=== PATIENT | male | born 1955 | race Caucasian/White ===

== ENCOUNTER 2018-08-26 11:20 | Inpatient (IN) | payer MEDICAID, MEDICARE, OTHER ==
[~2018-08-26] VITALS: Ht 167.6 cm; Wt 74.8 kg
[2018-08-26] MEDS ORDERED: ONDANSETRON HCL 4MG/2ML INJ IV STA (11:56)
[2018-08-26 12:29] LABS: BASOPHILS % 0.1 % (0.0-2.0); HEMATOCRIT. 41.8 % (42.0-52.0); HEMOGLOBIN. 14.7 g/dL (14.0-18.0); MEAN CORPUSCULAR HEMOGLOBIN 32.5 pg (28.0-32.0); MEAN CORPUSCULAR VOLUME 92.7 fL (80.0-94.0); MEAN PLATELET VOLUME 8.4 fl (7.4-10.4); MONOCYTES % 5.8 % (2.0-8.0); NEUTROPHILS % 86.1 % (40.0-76.0); PLATELET 136 x1000/uL (130-400); RED BLOOD CELL COUNT 4.51 mill/uL (4.7-6.1); RED CELL DISTRIBUTION WIDTH 13.7 % (11.6-14.6)
[2018-08-26 12:34] LABS: CHLORIDE 81 mEq/L (98-107)
[2018-08-26 13:06] LABS: CLARITY URINE CLEAR (CLEAR); COLOR URINE YELLOW (YELLOW); KETONES URINE 3+ (NEGATIVE); LEUKOCYTE ESTERASE URINE NEGATIVE (NEGATIVE); NITRITE URINE NEGATIVE (NEGATIVE); OCCULT BLOOD URINE 1+ (NEGATIVE); PROTEIN URINE 2+ (NEGATIVE); SPECIFIC GRAVITY URINE 1.025 (1.005-1.030); UROBILINOGEN URINE 0.2 E.U./dL (0.2-1.0)
[2018-08-26] MEDS ORDERED: ONDANSETRON HCL 4MG/2ML INJ IV ONE (14:15)
[2018-08-26] MEDS ORDERED: MAGNESIUM/ALUMINUM HYDROXIDE/SIMETHICONE 30ML UDC PO ONE (14:15)
[2018-08-26] MEDS ORDERED: IOHEXOL-300 100 ML BOTTLE ONE (14:42)
[2018-08-26] MEDS ORDERED: SODIUM CHLORIDE 0.9% 1,000 ML IV ONE (15:53)
[2018-08-26] MEDS ORDERED: LORAZEPAM 2MG/ML CPJ IV ONE (16:00)
[2018-08-26] MEDS ORDERED: DIPHENHYDRAMINE 50MG/ML VIAL IV PRN (21:00)
[2018-08-26] MEDS ORDERED: DOCUSATE SODIUM 100MG CAPSULE PO PRN (21:00)
[2018-08-26] MEDS ORDERED: IPRATROPIUM/ALBUTEROL 0.5-3(2.5)MG/3ML NEB INH PRN (21:00)
[2018-08-26] MEDS ORDERED: DEXTROSE 50% WATER 50ML SYRINGE IV PRN (21:00)
[2018-08-26] MEDS ORDERED: NA PHOS,M-B/NA PHOS,DI-BA ENEMA 118ML PR PRN (21:00)
[2018-08-26] MEDS ORDERED: ONDANSETRON HCL 4MG/2ML INJ IV PRN (21:00)
[2018-08-26] MEDS ORDERED: HYDROCODONE/ACETAMINOPHEN 10/325MG TABLET PO PRN (21:00)
[2018-08-26] MEDS ORDERED: HYDROMORPHONE HCL/PF 2MG/ML CPJ IV PRN (21:00)
[2018-08-26] MEDS ORDERED: ACETAMINOPHEN 325MG TABLET PO PRN (21:00)
[2018-08-26] MEDS ORDERED: GUAIFENESIN 200MG/10ML SUGAR FREE UDC PO PRN (21:00)
[2018-08-26 21:30] VITALS: BP 187/99
[2018-08-27] VITALS (12 sets, daily range): BP systolic 137–192; BP diastolic 71–105
[2018-08-27] MEDS ORDERED: MVI, ADULT NO.1 10 ML, FOLIC ACID 1 MG, THIAMINE HCL 100 MG in SODIUM CHLORIDE 0.9% 1,0... IV NR ×4
[2018-08-27 00:50] LABS: CREATINE KINASE 124 IU/L (39-308)
[2018-08-27 00:52] LABS: CREATINE KINASE MB FRACTION 2.4 ng/mL (0.5-3.6)
[2018-08-27] MEDS: CLONIDINE 0.1MG TABLET PO PRN (01:51)
[2018-08-27] MEDS: LORAZEPAM 2MG/ML CPJ IV PRN (02:49)
[2018-08-27] MEDS: MAGNESIUM/ALUMINUM HYDROXIDE/SIMETHICONE 30ML UDC PO PRN ×2 (03:05→18:32)
[2018-08-27] MEDS: SODIUM CHLORIDE 0.9% INJ 3ML FLUSH IVF SCH ×3 (05:02→21:38)
[2018-08-27 05:41] LABS: CHLORIDE 97 mEq/L (98-107)
[2018-08-27 05:52] LABS: CREATINE KINASE 96 IU/L (39-308)
[2018-08-27 06:00] LABS: CREATINE KINASE MB FRACTION 1.9 ng/mL (0.5-3.6)
[2018-08-27 06:25] LABS: BASOPHILS % 0.2 % (0.0-2.0); EOSINOPHILS % 0.1 % (0.0-5.0); HEMATOCRIT. 37.2 % (42.0-52.0); LYMPHOCYTES % 18.7 % (20.0-50.0); MEAN CORPUSCULAR HEMOGLOBIN 32.6 pg (28.0-32.0); MEAN CORPUSCULAR VOLUME 93.2 fL (80.0-94.0); MEAN PLATELET VOLUME 9.1 fl (7.4-10.4); MONOCYTES % 14.3 % (2.0-8.0); NEUTROPHILS % 66.7 % (40.0-76.0); PLATELET 124 x1000/uL (130-400); RED BLOOD CELL COUNT 3.99 mill/uL (4.7-6.1); RED CELL DISTRIBUTION WIDTH 13.8 % (11.6-14.6)
[2018-08-27] MEDS: BLOOD SUGAR DIAGNOSTIC STRIP TEST SCH ×4 (07:30→21:37)
[2018-08-27] MEDS ORDERED: PNEUMOCOCCAL 23-VAL P-SAC VAC 0.5 ML IM ONE (08:00)
[2018-08-27] MEDS ORDERED: FAMOTIDINE 20MG/2ML VIAL IV SCH (09:00)
[2018-08-27] MEDS: SODIUM CHLORIDE 0.45% 1,000 ML IV SCH ×2 (09:07→21:57)
[2018-08-27] MEDS: INSULIN LISPRO 100 UNITS/ML SUBCUT SCH ×4 (09:19→21:50)
[2018-08-27] MEDS: HYDRALAZINE 20MG/ML VIAL IV PRN ×2 (10:59→18:35)
[2018-08-27] MEDS: OMEPRAZOLE 20MG CAPSULE EXTENDED RELEASE PO SCH ×2 (12:26→21:27)
[2018-08-27 13:31] LABS: TOTAL IRON BINDING CAPACITY 201 ug/dL (250-450)
[2018-08-27 13:54] LABS: FERRITIN 513 ng/mL (22-322)
[2018-08-27 14:05] LABS: VITAMIN B12 SERUM 637 pg/mL (211-911)
[2018-08-27 14:15] LABS: FOLIC ACID (FOLATE) SERUM > 20.00 ng/mL (>5.38)
[2018-08-28] VITALS (11 sets, daily range): BP systolic 138–174; BP diastolic 67–97
[2018-08-28] MEDS: LORAZEPAM 2MG/ML CPJ IV PRN ×2 (05:15→22:33)
[2018-08-28] MEDS: SODIUM CHLORIDE 0.9% INJ 3ML FLUSH IVF SCH ×3 (05:23→23:35)
[2018-08-28] MEDS: OMEPRAZOLE 20MG CAPSULE EXTENDED RELEASE PO SCH ×2 (06:54→21:45)
[2018-08-28] MEDS: BLOOD SUGAR DIAGNOSTIC STRIP TEST SCH ×4 (07:45→21:00)
[2018-08-28] MEDS: INSULIN LISPRO 100 UNITS/ML SUBCUT SCH ×4 (08:56→22:34)
[2018-08-28 10:25] LABS: HEMATOCRIT 42.3 % (42.0-52.0); HEMOGLOBIN 14.8 g/dL (14.0-18.0); MEAN CORPUSCULAR HEMOGLOBIN 32.7 pg (28.0-32.0); MEAN CORPUSCULAR VOLUME 93.8 fL (80.0-94.0); PLATELET 126 x1000/uL (130-400); RED BLOOD CELL COUNT 4.51 mill/uL (4.7-6.1); RED CELL DISTRIBUTION WIDTH 13.7 % (11.6-14.6)
[2018-08-28 10:34] LABS: CHLORIDE 98 mEq/L (98-107)
[2018-08-28] MEDS: SODIUM CHLORIDE 0.45% 1,000 ML IV SCH (11:16)
[2018-08-28] MEDS: HYDRALAZINE 20MG/ML VIAL IV PRN (13:32)
[2018-08-28] MEDS ORDERED: POTASSIUM CHLORIDE 20MEQ TABLET SR PO NR (19:00)
[2018-08-29] VITALS (9 sets, daily range): BP systolic 107–206; BP diastolic 55–113
[2018-08-29] MEDS: SODIUM CHLORIDE 0.45% 1,000 ML IV SCH ×2 (03:08→13:22)
[2018-08-29] MEDS: OMEPRAZOLE 20MG CAPSULE EXTENDED RELEASE PO SCH (06:03)
[2018-08-29] MEDS: SODIUM CHLORIDE 0.9% INJ 3ML FLUSH IVF SCH ×2 (06:03→13:22)
[2018-08-29 06:27] LABS: BASOPHILS % 0.1 % (0.0-2.0); EOSINOPHILS % 1.5 % (0.0-5.0); HEMATOCRIT. 37.9 % (42.0-52.0); HEMOGLOBIN. 13.2 g/dL (14.0-18.0); LYMPHOCYTES % 30.8 % (20.0-50.0); MEAN CORPUSCULAR HEMOGLOBIN 32.8 pg (28.0-32.0); MEAN PLATELET VOLUME 8.7 fl (7.4-10.4); MONOCYTES % 13.3 % (2.0-8.0); NEUTROPHILS % 54.3 % (40.0-76.0); PLATELET 118 x1000/uL (130-400); RED BLOOD CELL COUNT 4.03 mill/uL (4.7-6.1)
[2018-08-29 06:29] LABS: CHLORIDE 102 mEq/L (98-107)
[2018-08-29] MEDS: BLOOD SUGAR DIAGNOSTIC STRIP TEST SCH ×2 (08:13→12:33)
[2018-08-29] MEDS: INSULIN LISPRO 100 UNITS/ML SUBCUT SCH ×2 (08:21→13:22)
[2018-08-29] MEDS: CLONIDINE 0.1MG TABLET PO PRN (12:00)
[2018-08-29] MEDS: HYDRALAZINE 20MG/ML VIAL IV PRN (12:37)
[2018-08-29] MEDS: LORAZEPAM 2MG/ML CPJ IV PRN (16:17)
== END 2018-08-29 16:45 | disposition home or self-care (01) | DRG 241 ==
LOC: ER 11:20 → EDBEDREQ 13:42 → 5EST 17:00 → EDBEDREQSVC 17:03 → EDBEDREQ 17:03 → ENRESERV 20:02
PROVIDERS: ADMIT Internal Medicine; ATTEND Internal Medicine
DX: K29.71 Gastritis, unspecified, with bleeding (principal); E87.1 Hypo-osmolality and hyponatremia; E11.9 Type 2 diabetes mellitus without complications; I10 Essential (primary) hypertension; K21.9 Gastro-esophageal reflux disease without esophagitis; K80.20 Calculus of gallbladder without cholecystitis without obstruction; S00.81XA Abrasion of other part of head, initial encounter; R74.0 Nonspecific elevation of levels of transaminase and lactic acid dehydrogenase [LDH]; R16.0 Hepatomegaly, not elsewhere classified; S89.91XA Unspecified injury of right lower leg, initial encounter; R26.9 Unspecified abnormalities of gait and mobility; W18.39XA Other fall on same level, initial encounter; F10.20 Alcohol dependence, uncomplicated; S00.31XA Abrasion of nose, initial encounter; Y93.89 Activity, other specified; Y92.89 Other specified places as the place of occurrence of the external cause; Y99.8 Other external cause status
CPT/HCPCS: 36415; 71045; 74177; 80048; 80076; 82270; 82550; 82553; 82607; 82728; 82746; 82962; 83540; 83550; 83880; 84484; 85027; 90732; 93005; 93970; 96374; 99285; C1893; J0360; J1815; J2060; J2405; J3411; J3490; J7030; Q9967

== ENCOUNTER 2018-12-30 11:29 | Inpatient (IN) | payer MEDICARE ==
[~2018-12-30] VITALS: Ht 170.2 cm; Wt 79.8 kg
[2018-12-30] MEDS ORDERED: SODIUM CHLORIDE 0.9% 1,000 ML IV ONE (15:58)
[2018-12-30] MEDS ORDERED: VANCOMYCIN 1 G PREMIX 200 ML IV ONE (16:15)
[2018-12-30] MEDS ORDERED: PIPERACILLIN/TAZ 3.375G PREMIX 50 ML IV ONE (16:15)
[2018-12-30 16:51] LABS: HEMATOCRIT. 37.8 % (42.0-52.0); MEAN CORPUSCULAR HEMOGLOBIN 33.2 pg (28.0-32.0); MEAN CORPUSCULAR VOLUME 97.1 fL (80.0-94.0); MEAN PLATELET VOLUME 7.6 fl (7.4-10.4); PLATELET 235 x1000/uL (130-400); RED CELL DISTRIBUTION WIDTH 12.8 % (11.6-14.6)
[2018-12-30 16:56] LABS: CHLORIDE 89 mEq/L (98-107)
[2018-12-30 17:05] LABS: INR 1.1; PROTHROMBIN TIME 11.6 sec (9.6-11.0)
[2018-12-30 17:20] LABS: PLATELET ESTIMATE NORMAL
[2018-12-30] MEDS ORDERED: SODIUM CHLORIDE 0.9% 1000ML BAG (SEPSIS BOLUS) IV ONE (17:30)
[2018-12-30 20:28] LABS: CLARITY URINE CLEAR (CLEAR); COLOR URINE ORANGE (YELLOW); KETONES URINE 4+ (NEGATIVE); LEUKOCYTE ESTERASE URINE NEGATIVE (NEGATIVE); NITRITE URINE NEGATIVE (NEGATIVE); OCCULT BLOOD URINE TRACE (NEGATIVE); PROTEIN URINE 2+ (NEGATIVE); SPECIFIC GRAVITY URINE 1.031 (1.005-1.030)
[2018-12-30 21:40] VITALS: BP 170/96
[2018-12-30 22:00] VITALS: BP 170/96
[2018-12-30] MEDS ORDERED: INSULIN GLARGINE UD 100 UNITS/ML SYR SUBCUT SCH (23:00)
[2018-12-30] MEDS ORDERED: DEXTROSE 50% WATER 50ML SYRINGE IV PRN (23:00)
[2018-12-30] MEDS: BLOOD SUGAR DIAGNOSTIC STRIP TEST SCH (23:01)
[2018-12-30] MEDS: LOSARTAN POTASSIUM 100 MG TABLET PO SCH (23:29)
[2018-12-30] MEDS: ACETAMINOPHEN 325MG TABLET PO PRN (23:29)
[2018-12-30] MEDS: INSULIN LISPRO 100 UNITS/ML SUBCUT SCH (23:35)
[2018-12-31] VITALS: BP 165/84
[2018-12-31] MEDS: ZOLPIDEM TARTRATE 5MG TABLET PO PRN ×2 (00:40→21:20)
[2018-12-31] MEDS: INSULIN GLARGINE UD 100 UNITS/ML SYR SUBCUT SCH ×3 (00:44→22:05)
[2018-12-31] MEDS ORDERED: LOSA50TA41 MT (01:54)
[2018-12-31] MEDS ORDERED: VANCOMYCIN 1 G PREMIX 200 ML IV SCH (03:00)
[2018-12-31 04:00] VITALS: BP 149/85
[2018-12-31] MEDS: PIPERACILLIN/TAZOBACTAM 3.375 G in DEXT 5% WATER 100 ML IV SCH ×4 (05:01→23:58)
[2018-12-31] MEDS ORDERED: PIPERACILLIN/TAZOBACTAM 3.375GM/50ML PREMIX IV SCH (06:00)
[2018-12-31] MEDS: BLOOD SUGAR DIAGNOSTIC STRIP TEST SCH ×4 (06:23→21:00)
[2018-12-31] MEDS: INSULIN LISPRO 100 UNITS/ML SUBCUT SCH ×6 (06:31→21:00)
[2018-12-31 06:57] LABS: BASOPHILS % 0.2 % (0.0-2.0); EOSINOPHILS % 0.1 % (0.0-5.0); HEMATOCRIT. 35.4 % (42.0-52.0); HEMOGLOBIN. 12.3 g/dL (14.0-18.0); LYMPHOCYTES % 10.6 % (20.0-50.0); MEAN CORPUSCULAR HEMOGLOBIN 33.4 pg (28.0-32.0); MEAN CORPUSCULAR VOLUME 96.3 fL (80.0-94.0); MONOCYTES % 10.4 % (2.0-8.0); NEUTROPHILS % 78.7 % (40.0-76.0); PLATELET 211 x1000/uL (130-400); RED BLOOD CELL COUNT 3.68 mill/uL (4.7-6.1); RED CELL DISTRIBUTION WIDTH 12.7 % (11.6-14.6)
[2018-12-31 07:09] LABS: CHLORIDE 98 mEq/L (98-107)
[2018-12-31 07:29] LABS: LDL CHOLESTEROL 77 mg/dL (5-100)
[2018-12-31 07:31] LABS: HDL CHOLESTEROL 25 mg/dL (40-59)
[2018-12-31 08:00] VITALS: BP 154/91
[2018-12-31] MEDS ORDERED: INFLUENZA VIRUS VACCINE(AFLURIA) 0.5ML SYR IM ONE (10:00)
[2018-12-31] MEDS: LOSARTAN POTASSIUM 100 MG TABLET PO SCH (10:13)
[2018-12-31] MEDS: ENOXAPARIN 40MG/0.4ML SYR SUBCUT SCH (10:15)
[2018-12-31] MEDS: MORPHINE SULFATE 2 MG/ML CPJ (NOT FOR IM USE) IV PRN (10:27)
[2018-12-31 12:00] VITALS: BP 148/79
[2018-12-31] MEDS: VANCOMYCIN 1 G PREMIX 200 ML IV SCH ×2 (13:57→22:06)
[2018-12-31 16:00] VITALS: BP 159/72
[2018-12-31] MEDS: ACETAMINOPHEN 325MG TABLET PO PRN (16:31)
[2018-12-31 20:00] VITALS: BP 127/70
[2019-01-01 00:05] VITALS: BP 127/64
[2019-01-01 04:00] VITALS: BP 128/69
[2019-01-01 04:44] LABS: BASOPHILS % 0.3 % (0.0-2.0); EOSINOPHILS % 0.3 % (0.0-5.0); HEMATOCRIT. 33.3 % (42.0-52.0); HEMOGLOBIN. 11.7 g/dL (14.0-18.0); LYMPHOCYTES % 12.7 % (20.0-50.0); MEAN CORPUSCULAR HEMOGLOBIN 33.8 pg (28.0-32.0); MEAN CORPUSCULAR VOLUME 96.1 fL (80.0-94.0); MEAN PLATELET VOLUME 7.8 fl (7.4-10.4); MONOCYTES % 11.8 % (2.0-8.0); NEUTROPHILS % 74.9 % (40.0-76.0); PLATELET 204 x1000/uL (130-400); RED BLOOD CELL COUNT 3.47 mill/uL (4.7-6.1); RED CELL DISTRIBUTION WIDTH 12.7 % (11.6-14.6)
[2019-01-01 04:47] LABS: CHLORIDE 95 mEq/L (98-107)
[2019-01-01 04:57] LABS: VANCOMYCIN TROUGH 14.6 ug/mL (5.0-10.0)
[2019-01-01] MEDS: PIPERACILLIN/TAZOBACTAM 3.375 G in DEXT 5% WATER 100 ML IV SCH ×3 (05:15→17:14)
[2019-01-01] MEDS: VANCOMYCIN 1 G PREMIX 200 ML IV SCH (05:57)
[2019-01-01] MEDS: BLOOD SUGAR DIAGNOSTIC STRIP TEST SCH ×4 (06:05→21:00)
[2019-01-01] MEDS: INSULIN LISPRO 100 UNITS/ML SUBCUT SCH ×7 (07:40→21:00)
[2019-01-01 08:00] VITALS: BP 163/83
[2019-01-01] MEDS: LOSARTAN POTASSIUM 100 MG TABLET PO SCH (08:48)
[2019-01-01] MEDS: ENOXAPARIN 40MG/0.4ML SYR SUBCUT SCH (08:48)
[2019-01-01] MEDS ORDERED: POTASSIUM CHLORIDE INJ 40 MEQ in DEXT 5% WATER 250 ML IV SCH (10:00)
[2019-01-01] MEDS: INSULIN GLARGINE UD 100 UNITS/ML SYR SUBCUT SCH ×2 (11:05→21:15)
[2019-01-01 12:00] VITALS: BP 126/66
[2019-01-01] MEDS: MORPHINE SULFATE 2 MG/ML CPJ (NOT FOR IM USE) IV PRN (13:08)
[2019-01-01 16:00] VITALS: BP 162/82
[2019-01-01] MEDS: VANCOMYCIN 1250MG in DEXTROSE 5% WATER 250ML IV SCH ×2 (18:03→22:28)
[2019-01-01 20:00] VITALS: BP 116/64
[2019-01-01] MEDS: ZOLPIDEM TARTRATE 5MG TABLET PO PRN (21:07)
[2019-01-01] MEDS: ACETAMINOPHEN 325MG TABLET PO PRN (21:07)
[2019-01-02 00:05] VITALS: BP 133/69
[2019-01-02] MEDS: PIPERACILLIN/TAZOBACTAM 3.375 G in DEXT 5% WATER 100 ML IV SCH ×5 (00:35→23:47)
[2019-01-02 04:00] VITALS: BP 141/81
[2019-01-02] MEDS: BLOOD SUGAR DIAGNOSTIC STRIP TEST SCH ×4 (05:33→20:47)
[2019-01-02] MEDS: VANCOMYCIN 1250MG in DEXTROSE 5% WATER 250ML IV SCH ×3 (06:11→22:11)
[2019-01-02 07:30] LABS: BASOPHILS % 0.3 % (0.0-2.0); EOSINOPHILS % 0.8 % (0.0-5.0); HEMATOCRIT. 33.3 % (42.0-52.0); HEMOGLOBIN. 11.6 g/dL (14.0-18.0); LYMPHOCYTES % 11.7 % (20.0-50.0); MEAN CORPUSCULAR HEMOGLOBIN 33.6 pg (28.0-32.0); MEAN CORPUSCULAR VOLUME 96.3 fL (80.0-94.0); MEAN PLATELET VOLUME 7.8 fl (7.4-10.4); MONOCYTES % 11.4 % (2.0-8.0); NEUTROPHILS % 75.8 % (40.0-76.0); PLATELET 222 x1000/uL (130-400); RED BLOOD CELL COUNT 3.46 mill/uL (4.7-6.1); RED CELL DISTRIBUTION WIDTH 12.6 % (11.6-14.6)
[2019-01-02 07:35] LABS: CHLORIDE 98 mEq/L (98-107)
[2019-01-02 08:00] VITALS: BP 164/89
[2019-01-02] MEDS: LOSARTAN POTASSIUM 100 MG TABLET PO SCH (08:39)
[2019-01-02] MEDS: ENOXAPARIN 40MG/0.4ML SYR SUBCUT SCH (08:40)
[2019-01-02] MEDS: INSULIN LISPRO 100 UNITS/ML SUBCUT SCH ×6 (08:41→20:49)
[2019-01-02] MEDS: INSULIN GLARGINE UD 100 UNITS/ML SYR SUBCUT SCH ×2 (11:05→22:12)
[2019-01-02 12:00] VITALS: BP 130/79
[2019-01-02] MEDS ORDERED: POTASSIUM CHLORIDE 20MEQ TABLET SR PO NR (13:45)
[2019-01-02 16:00] VITALS: BP 173/91
[2019-01-02] MEDS: CLONIDINE 0.1MG TABLET PO PRN (16:45)
[2019-01-02 20:19] VITALS: BP 145/77
[2019-01-02] MEDS: ACETAMINOPHEN 325MG TABLET PO PRN (20:41)
[2019-01-02] MEDS: ZOLPIDEM TARTRATE 5MG TABLET PO PRN (20:41)
[2019-01-03 00:05] VITALS: BP 106/69
[2019-01-03 04:00] VITALS: BP 146/80
[2019-01-03] MEDS: PIPERACILLIN/TAZOBACTAM 3.375 G in DEXT 5% WATER 100 ML IV SCH ×3 (04:49→19:45)
[2019-01-03] MEDS: VANCOMYCIN 1250MG in DEXTROSE 5% WATER 250ML IV SCH (05:46)
[2019-01-03] MEDS: BLOOD SUGAR DIAGNOSTIC STRIP TEST SCH ×4 (05:52→21:00)
[2019-01-03 07:40] LABS: BASOPHILS % 0.2 % (0.0-2.0); EOSINOPHILS % 0.8 % (0.0-5.0); HEMOGLOBIN. 11.6 g/dL (14.0-18.0); MEAN CORPUSCULAR HEMOGLOBIN 33.9 pg (28.0-32.0); MEAN CORPUSCULAR VOLUME 96.6 fL (80.0-94.0); MEAN PLATELET VOLUME 7.6 fl (7.4-10.4); MONOCYTES % 12.4 % (2.0-8.0); NEUTROPHILS % 75.6 % (40.0-76.0); PLATELET 230 x1000/uL (130-400); RED BLOOD CELL COUNT 3.41 mill/uL (4.7-6.1)
[2019-01-03] MEDS: INSULIN LISPRO 100 UNITS/ML SUBCUT SCH ×7 (07:40→22:22)
[2019-01-03 07:54] LABS: VANCOMYCIN TROUGH 30.1 ug/mL (5.0-10.0)
[2019-01-03 08:00] VITALS: BP 157/85
[2019-01-03] MEDS: ENOXAPARIN 40MG/0.4ML SYR SUBCUT SCH (09:00)
[2019-01-03] MEDS: LOSARTAN POTASSIUM 100 MG TABLET PO SCH (09:11)
[2019-01-03] MEDS: ACETAMINOPHEN 325MG TABLET PO PRN ×2 (09:11→18:13)
[2019-01-03] MEDS: INSULIN GLARGINE UD 100 UNITS/ML SYR SUBCUT SCH ×2 (10:00→21:52)
[2019-01-03] MEDS ORDERED: POTASSIUM CHLORIDE INJ 40 MEQ in DEXT 5% WATER 250 ML IV NR (11:00)
[2019-01-03] MEDS: SODIUM CHLORIDE 0.9% 1,000 ML IV SCH ×2 (11:12→21:28)
[2019-01-03 12:00] VITALS: BP 154/83
[2019-01-03] MEDS ORDERED: INSULIN LISPRO 100 UNITS/ML SUBCUT NR (13:45)
[2019-01-03] MEDS ORDERED: DEXAMETHASONE 4MG/ML 1ML VIAL ONE (13:46)
[2019-01-03] MEDS ORDERED: BUPIVACAINE HCL/PF 0.5% (5MG/ML) 10ML ONE (13:47)
[2019-01-03] MEDS ORDERED: LIDOCAINE HCL/PF 1% 10 MG/ML 5ML VIAL ONE (13:49)
[2019-01-03] MEDS ORDERED: BACITRACIN 50,000 UNITS/VIAL ONE (13:50)
[2019-01-03] MEDS ORDERED: HYDROMORPHONE HCL/PF 2MG/ML CPJ IV PRN (15:15)
[2019-01-03] MEDS ORDERED: ONDANSETRON HCL 4MG/2ML INJ IV PRN (15:15)
[2019-01-03 16:00] VITALS: BP 158/80
[2019-01-03 20:00] VITALS: BP 131/73
[2019-01-03] MEDS: MORPHINE SULFATE 2 MG/ML CPJ (NOT FOR IM USE) IV PRN (21:51)
[2019-01-03] MEDS: ZOLPIDEM TARTRATE 5MG TABLET PO PRN (21:55)
[2019-01-04] VITALS: BP 111/51
[2019-01-04] MEDS: PIPERACILLIN/TAZOBACTAM 3.375 G in DEXT 5% WATER 100 ML IV SCH ×4 (00:22→18:53)
[2019-01-04 04:00] VITALS: BP 138/78
[2019-01-04] MEDS: BLOOD SUGAR DIAGNOSTIC STRIP TEST SCH ×4 (05:42→21:55)
[2019-01-04] MEDS: LOPERAMIDE HCL 2MG CAPSULE PO PRN ×2 (06:34→09:58)
[2019-01-04] MEDS: INSULIN LISPRO 100 UNITS/ML SUBCUT SCH ×6 (07:40→21:00)
[2019-01-04 07:52] LABS: BASOPHILS % 0.3 % (0.0-2.0); EOSINOPHILS % 0.9 % (0.0-5.0); HEMATOCRIT. 30.6 % (42.0-52.0); HEMOGLOBIN. 10.5 g/dL (14.0-18.0); LYMPHOCYTES % 11.8 % (20.0-50.0); MEAN CORPUSCULAR HEMOGLOBIN 33.1 pg (28.0-32.0); MEAN PLATELET VOLUME 7.7 fl (7.4-10.4); MONOCYTES % 12.1 % (2.0-8.0); NEUTROPHILS % 74.9 % (40.0-76.0); PLATELET 217 x1000/uL (130-400); RED BLOOD CELL COUNT 3.16 mill/uL (4.7-6.1); RED CELL DISTRIBUTION WIDTH 13.3 % (11.6-14.6)
[2019-01-04 08:00] VITALS: BP 145/85
[2019-01-04] MEDS: ENOXAPARIN 40MG/0.4ML SYR SUBCUT SCH (09:46)
[2019-01-04] MEDS: LOSARTAN POTASSIUM 100 MG TABLET PO SCH (09:46)
[2019-01-04] MEDS: SODIUM CHLORIDE 0.9% 1,000 ML IV SCH ×2 (09:47→20:39)
[2019-01-04] MEDS: INSULIN GLARGINE UD 100 UNITS/ML SYR SUBCUT SCH ×2 (10:01→21:56)
[2019-01-04] MEDS: MORPHINE SULFATE 2 MG/ML CPJ (NOT FOR IM USE) IV PRN ×2 (10:30→20:38)
[2019-01-04 12:00] VITALS: BP 135/75
[2019-01-04] MEDS ORDERED: POTASSIUM CHLORIDE 20MEQ TABLET SR PO NR (12:00)
[2019-01-04 14:29] VITALS: BP 155/75
[2019-01-04 18:51] LABS: CREATINE KINASE 30 IU/L (39-308)
[2019-01-04 20:00] VITALS: BP 159/87
[2019-01-04] MEDS: DIPHENOXYLATE/ATROPINE 2.5/0.025MG TABLET PO PRN (20:38)
[2019-01-04] MEDS: ZOLPIDEM TARTRATE 5MG TABLET PO PRN (20:38)
[2019-01-05] VITALS: BP 118/64
[2019-01-05] MEDS: PIPERACILLIN/TAZOBACTAM 3.375 G in DEXT 5% WATER 100 ML IV SCH ×2 (00:36→05:29)
[2019-01-05 04:00] VITALS: BP 122/72
[2019-01-05] MEDS: BLOOD SUGAR DIAGNOSTIC STRIP TEST SCH ×4 (05:56→21:00)
[2019-01-05] MEDS: INSULIN LISPRO 100 UNITS/ML SUBCUT SCH ×4 (05:57→21:00)
[2019-01-05] MEDS: DIPHENOXYLATE/ATROPINE 2.5/0.025MG TABLET PO PRN (05:57)
[2019-01-05 07:24] LABS: BASOPHILS % 0.3 % (0.0-2.0); EOSINOPHILS % 2.6 % (0.0-5.0); HEMATOCRIT. 29.2 % (42.0-52.0); HEMOGLOBIN. 10.2 g/dL (14.0-18.0); LYMPHOCYTES % 13.7 % (20.0-50.0); MEAN CORPUSCULAR VOLUME 97.6 fL (80.0-94.0); MEAN PLATELET VOLUME 7.6 fl (7.4-10.4); MONOCYTES % 11.2 % (2.0-8.0); NEUTROPHILS % 72.2 % (40.0-76.0); PLATELET 219 x1000/uL (130-400); RED BLOOD CELL COUNT 2.99 mill/uL (4.7-6.1); RED CELL DISTRIBUTION WIDTH 13.2 % (11.6-14.6)
[2019-01-05 07:46] LABS: PHOSPHORUS 4.1 mg/dL (2.5-4.9)
[2019-01-05 08:18] VITALS: BP 161/85
[2019-01-05] MEDS: ENOXAPARIN 30MG/0.3ML SYR SUBCUT SCH (09:00)
[2019-01-05] MEDS: CLONIDINE 0.1MG TABLET PO PRN (09:06)
[2019-01-05] MEDS: INSULIN GLARGINE UD 100 UNITS/ML SYR SUBCUT SCH ×2 (10:24→22:00)
[2019-01-05] MEDS: SODIUM CHLORIDE 0.9% 1,000 ML IV SCH (10:49)
[2019-01-05] MEDS: MORPHINE SULFATE 2 MG/ML CPJ (NOT FOR IM USE) IV PRN (11:35)
[2019-01-05 11:36] VITALS: BP 133/84
[2019-01-05] MEDS: PIPERACILLIN/TAZOBACTAM 2.25 G in DEXTROSE 5% WATER 50 ML IV SCH ×2 (15:21→22:04)
[2019-01-05 16:35] VITALS: BP 166/77
[2019-01-05] MEDS ORDERED: MAGNESIUM 2 G PREMIX 50 ML IV NR (18:00)
[2019-01-05] MEDS ORDERED: FAMOTIDINE 20MG/2ML VIAL IV SCH ×3 (18:00→19:15)
[2019-01-05 20:00] VITALS: BP 138/74
[2019-01-06 00:19] VITALS: BP 143/79
[2019-01-06 04:00] VITALS: BP 146/85
[2019-01-06] MEDS: PIPERACILLIN/TAZOBACTAM 2.25 G in DEXTROSE 5% WATER 50 ML IV SCH ×2 (06:09→13:23)
[2019-01-06 06:47] LABS: BASOPHILS % 0.6 % (0.0-2.0); EOSINOPHILS % 1.7 % (0.0-5.0); HEMATOCRIT. 29.1 % (42.0-52.0); HEMOGLOBIN. 10.1 g/dL (14.0-18.0); LYMPHOCYTES % 14.4 % (20.0-50.0); MEAN CORPUSCULAR HEMOGLOBIN 33.9 pg (28.0-32.0); MEAN CORPUSCULAR VOLUME 97.5 fL (80.0-94.0); MEAN PLATELET VOLUME 7.6 fl (7.4-10.4); NEUTROPHILS % 72.3 % (40.0-76.0); PLATELET 249 x1000/uL (130-400); RED BLOOD CELL COUNT 2.99 mill/uL (4.7-6.1); RED CELL DISTRIBUTION WIDTH 13.1 % (11.6-14.6)
[2019-01-06] MEDS: BLOOD SUGAR DIAGNOSTIC STRIP TEST SCH ×4 (07:01→20:58)
[2019-01-06] MEDS: DIPHENOXYLATE/ATROPINE 2.5/0.025MG TABLET PO PRN (07:07)
[2019-01-06] MEDS: SODIUM CHLORIDE 0.9% 1,000 ML IV SCH (07:56)
[2019-01-06 08:00] VITALS: BP 152/80
[2019-01-06] MEDS: INSULIN LISPRO 100 UNITS/ML SUBCUT SCH ×4 (08:10→20:57)
[2019-01-06 08:32] LABS: PHOSPHORUS 5.3 mg/dL (2.5-4.9)
[2019-01-06] MEDS ORDERED: FAMOTIDINE 20MG/2ML VIAL IV SCH (09:00)
[2019-01-06] MEDS: INSULIN GLARGINE UD 100 UNITS/ML SYR SUBCUT SCH ×2 (09:35→22:21)
[2019-01-06] MEDS: ENOXAPARIN 30MG/0.3ML SYR SUBCUT SCH (09:35)
[2019-01-06] MEDS: MORPHINE SULFATE 2 MG/ML CPJ (NOT FOR IM USE) IV PRN (10:56)
[2019-01-06] MEDS ORDERED: HYDROCODONE/ACETAMINOPHEN 5/325MG TABLET PO PRN (11:00)
[2019-01-06 12:00] VITALS: BP 183/95
[2019-01-06] MEDS: MAGNESIUM/ALUMINUM HYDROXIDE/SIMETHICONE 30ML UDC PO PRN ×2 (13:23→20:57)
[2019-01-06] MEDS: CLONIDINE 0.1MG TABLET PO PRN ×2 (13:24→20:57)
[2019-01-06] MEDS: AMLODIPINE 5MG TABLET PO SCH (14:36)
[2019-01-06] MEDS ORDERED: CEFAZOLIN 1000MG PREMIX 50 ML IV SCH (15:00)
[2019-01-06 16:00] VITALS: BP 173/87
[2019-01-06] MEDS: CEFAZOLIN 1000MG PREMIX 50 ML IV SCH (18:33)
[2019-01-06 20:00] VITALS: BP 179/101
[2019-01-06] MEDS: FAMOTIDINE 20MG TABLET PO SCH (20:57)
[2019-01-06] MEDS ORDERED: INSULIN GLARGINE UD 100 UNITS/ML SYR SUBCUT SCH (22:00)
[2019-01-06 22:07] LABS: CLARITY URINE CLEAR (CLEAR); COLOR URINE YELLOW (YELLOW); KETONES URINE NEGATIVE (NEGATIVE); LEUKOCYTE ESTERASE URINE NEGATIVE (NEGATIVE); NITRITE URINE NEGATIVE (NEGATIVE); OCCULT BLOOD URINE NEGATIVE (NEGATIVE); PROTEIN URINE NEGATIVE (NEGATIVE); SPECIFIC GRAVITY URINE 1.005 (1.005-1.030); UROBILINOGEN URINE 0.2 E.U./dL (0.2-1.0)
[2019-01-06] MEDS: CLONIDINE 0.1MG TABLET PO SCH (22:21)
[2019-01-07] VITALS: BP 162/93
[2019-01-07 04:00] VITALS: BP 146/79
[2019-01-07] MEDS: CLONIDINE 0.1MG TABLET PO SCH ×3 (06:13→22:30)
[2019-01-07] MEDS: BLOOD SUGAR DIAGNOSTIC STRIP TEST SCH ×4 (07:43→21:07)
[2019-01-07] MEDS: INSULIN LISPRO 100 UNITS/ML SUBCUT SCH ×4 (07:43→21:00)
[2019-01-07 07:44] LABS: BASOPHILS % 0.3 % (0.0-2.0); EOSINOPHILS % 1.4 % (0.0-5.0); HEMATOCRIT. 28.1 % (42.0-52.0); HEMOGLOBIN. 9.8 g/dL (14.0-18.0); LYMPHOCYTES % 13.3 % (20.0-50.0); MEAN CORPUSCULAR HEMOGLOBIN 33.4 pg (28.0-32.0); MEAN PLATELET VOLUME 7.5 fl (7.4-10.4); MONOCYTES % 11.1 % (2.0-8.0); NEUTROPHILS % 73.9 % (40.0-76.0); PLATELET 271 x1000/uL (130-400); RED BLOOD CELL COUNT 2.93 mill/uL (4.7-6.1); RED CELL DISTRIBUTION WIDTH 13.1 % (11.6-14.6)
[2019-01-07 08:00] VITALS: BP 153/80
[2019-01-07 08:27] LABS: PHOSPHORUS 4.4 mg/dL (2.5-4.9)
[2019-01-07] MEDS: AMLODIPINE 5MG TABLET PO SCH (09:36)
[2019-01-07] MEDS: ENOXAPARIN 30MG/0.3ML SYR SUBCUT SCH (09:37)
[2019-01-07 10:33] LABS: BG BASE EXCESS -7.3 mmol/L (-2.0-2.0); BG CARBOXYHEMOGLOBIN 0.3 % (0.5-1.5); BG FRACTION INSPIRED OXYGEN 21; BG HCO3 ACT 17.1 mmol/L (22.0-26.0); BG METHEMOGLOBIN 0.3 % (0.0-1.5); BG OXYHEMOGLOBIN 96.4 % (94.0-97.0); BG PCO2 30.9 mmHg (35.0-45.0); BG PH 7.361 (7.350-7.450); BG PO2 95.7 mmHg (75.0-100.0); BG SAMPLE SITE LEFT RADIAL; BG TOTAL HEMOGLOBIN 10.5 g/dL (12.0-18.0); BG VENT MODE ROOM AIR
[2019-01-07] MEDS: INSULIN GLARGINE UD 100 UNITS/ML SYR SUBCUT SCH ×2 (10:56→22:30)
[2019-01-07 12:00] VITALS: BP 157/77
[2019-01-07] MEDS: CITRIC ACID/SODIUM CITRATE SOLN 15ML UDC PO SCH ×2 (15:26→18:01)
[2019-01-07 16:00] VITALS: BP 147/76
[2019-01-07] MEDS: CEFAZOLIN 1000MG PREMIX 50 ML IV SCH (19:15)
[2019-01-07 20:00] VITALS: BP 141/82
[2019-01-07] MEDS: FAMOTIDINE 20MG TABLET PO SCH (21:06)
[2019-01-07] MEDS: ZOLPIDEM TARTRATE 5MG TABLET PO PRN (22:30)
[2019-01-08] VITALS: BP 149/80
[2019-01-08 04:00] VITALS: BP 144/72
[2019-01-08] MEDS: CLONIDINE 0.1MG TABLET PO SCH ×3 (06:28→20:31)
[2019-01-08 07:10] LABS: BASOPHILS % 0.4 % (0.0-2.0); EOSINOPHILS % 1.2 % (0.0-5.0); HEMATOCRIT. 28.1 % (42.0-52.0); HEMOGLOBIN. 9.8 g/dL (14.0-18.0); LYMPHOCYTES % 14.9 % (20.0-50.0); MEAN CORPUSCULAR HEMOGLOBIN 33.5 pg (28.0-32.0); MEAN CORPUSCULAR VOLUME 96.5 fL (80.0-94.0); MEAN PLATELET VOLUME 7.4 fl (7.4-10.4); MONOCYTES % 10.2 % (2.0-8.0); NEUTROPHILS % 73.3 % (40.0-76.0); PLATELET 311 x1000/uL (130-400); RED BLOOD CELL COUNT 2.91 mill/uL (4.7-6.1); RED CELL DISTRIBUTION WIDTH 13.5 % (11.6-14.6)
[2019-01-08 07:35] LABS: PHOSPHORUS 3.6 mg/dL (2.5-4.9)
[2019-01-08 08:00] VITALS: BP 156/80
[2019-01-08] MEDS: INSULIN LISPRO 100 UNITS/ML SUBCUT SCH ×4 (08:10→20:48)
[2019-01-08] MEDS: BLOOD SUGAR DIAGNOSTIC STRIP TEST SCH ×4 (08:36→20:48)
[2019-01-08] MEDS: AMLODIPINE 10MG TABLET PO SCH (09:14)
[2019-01-08] MEDS: CITRIC ACID/SODIUM CITRATE SOLN 15ML UDC PO SCH ×3 (09:14→17:38)
[2019-01-08] MEDS: ENOXAPARIN 30MG/0.3ML SYR SUBCUT SCH (09:14)
[2019-01-08] MEDS: INSULIN GLARGINE UD 100 UNITS/ML SYR SUBCUT SCH ×2 (09:15→22:10)
[2019-01-08 12:00] VITALS: BP 142/67
[2019-01-08 16:00] VITALS: BP 132/72
[2019-01-08] MEDS: CEFAZOLIN 1000MG PREMIX 50 ML IV SCH (18:02)
[2019-01-08 20:00] VITALS: BP 138/70
[2019-01-08] MEDS: FAMOTIDINE 20MG TABLET PO SCH (20:30)
[2019-01-09] VITALS: BP 155/82
[2019-01-09 04:00] VITALS: BP 140/76
[2019-01-09] MEDS: CLONIDINE 0.1MG TABLET PO SCH ×3 (05:56→21:03)
[2019-01-09 07:30] LABS: BASOPHILS % 0.3 % (0.0-2.0); EOSINOPHILS % 0.8 % (0.0-5.0); HEMOGLOBIN. 10.5 g/dL (14.0-18.0); LYMPHOCYTES % 19.4 % (20.0-50.0); MEAN CORPUSCULAR HEMOGLOBIN 33.8 pg (28.0-32.0); MEAN CORPUSCULAR VOLUME 96.1 fL (80.0-94.0); MEAN PLATELET VOLUME 7.5 fl (7.4-10.4); MONOCYTES % 10.5 % (2.0-8.0); PLATELET 352 x1000/uL (130-400); RED BLOOD CELL COUNT 3.12 mill/uL (4.7-6.1); RED CELL DISTRIBUTION WIDTH 13.2 % (11.6-14.6)
[2019-01-09 07:31] LABS: CHLORIDE 107 mEq/L (98-107)
[2019-01-09] MEDS: INSULIN LISPRO 100 UNITS/ML SUBCUT SCH ×4 (07:42→21:00)
[2019-01-09] MEDS: BLOOD SUGAR DIAGNOSTIC STRIP TEST SCH ×4 (07:42→21:00)
[2019-01-09 08:00] VITALS: BP 155/80
[2019-01-09] MEDS: CITRIC ACID/SODIUM CITRATE SOLN 15ML UDC PO SCH ×4 (09:00→17:00)
[2019-01-09] MEDS: ENOXAPARIN 30MG/0.3ML SYR SUBCUT SCH (09:55)
[2019-01-09] MEDS: AMLODIPINE 10MG TABLET PO SCH (09:55)
[2019-01-09] MEDS: INSULIN GLARGINE UD 100 UNITS/ML SYR SUBCUT SCH ×2 (09:56→22:57)
[2019-01-09 12:00] VITALS: BP 142/70
[2019-01-09 16:00] VITALS: BP 144/78
[2019-01-09] MEDS ORDERED: DIPHENOXYLATE/ATROPINE 2.5/0.025MG TABLET PO PRN (16:30)
[2019-01-09] MEDS: CEFAZOLIN 1000MG PREMIX 50 ML IV SCH (17:56)
[2019-01-09 20:00] VITALS: BP 132/76
[2019-01-09] MEDS: ZOLPIDEM TARTRATE 5MG TABLET PO PRN (21:02)
[2019-01-09] MEDS: FAMOTIDINE 20MG TABLET PO SCH (21:02)
[2019-01-10] VITALS: BP 134/76
[2019-01-10 04:00] VITALS: BP 135/67
[2019-01-10] MEDS: CLONIDINE 0.1MG TABLET PO SCH ×3 (05:35→21:10)
[2019-01-10] MEDS: BLOOD SUGAR DIAGNOSTIC STRIP TEST SCH ×4 (06:24→21:22)
[2019-01-10 07:34] LABS: BASOPHILS % 0.4 % (0.0-2.0); EOSINOPHILS % 0.3 % (0.0-5.0); HEMATOCRIT. 29.9 % (42.0-52.0); HEMOGLOBIN. 10.4 g/dL (14.0-18.0); LYMPHOCYTES % 8.3 % (20.0-50.0); MEAN CORPUSCULAR HEMOGLOBIN 33.1 pg (28.0-32.0); MEAN CORPUSCULAR VOLUME 95.2 fL (80.0-94.0); MEAN PLATELET VOLUME 7.4 fl (7.4-10.4); PLATELET 370 x1000/uL (130-400); RED BLOOD CELL COUNT 3.14 mill/uL (4.7-6.1); RED CELL DISTRIBUTION WIDTH 13.1 % (11.6-14.6)
[2019-01-10 08:00] VITALS: BP 138/76
[2019-01-10] MEDS: INSULIN LISPRO 100 UNITS/ML SUBCUT SCH ×4 (08:10→21:00)
[2019-01-10] MEDS: CITRIC ACID/SODIUM CITRATE SOLN 15ML UDC PO SCH ×4 (09:00→17:00)
[2019-01-10] MEDS: AMLODIPINE 10MG TABLET PO SCH (09:16)
[2019-01-10] MEDS: ENOXAPARIN 30MG/0.3ML SYR SUBCUT SCH (09:49)
[2019-01-10] MEDS: INSULIN GLARGINE UD 100 UNITS/ML SYR SUBCUT SCH ×2 (09:52→21:58)
[2019-01-10] MEDS: MORPHINE SULFATE 2 MG/ML CPJ (NOT FOR IM USE) IV PRN (11:19)
[2019-01-10 12:00] VITALS: BP 160/86
[2019-01-10] MEDS: CEFAZOLIN 1000MG PREMIX 50 ML IV SCH (18:10)
[2019-01-10 20:00] VITALS: BP 168/83
[2019-01-10] MEDS: ZOLPIDEM TARTRATE 5MG TABLET PO PRN (21:10)
[2019-01-10] MEDS: FAMOTIDINE 20MG TABLET PO SCH (21:10)
[2019-01-11] VITALS: BP 138/82
[2019-01-11] MEDS: CLONIDINE 0.1MG TABLET PO SCH ×3 (06:22→21:24)
[2019-01-11] MEDS: BLOOD SUGAR DIAGNOSTIC STRIP TEST SCH ×4 (06:27→21:00)
[2019-01-11 08:00] VITALS: BP 157/86
[2019-01-11 08:04] LABS: BASOPHILS % 0.4 % (0.0-2.0); EOSINOPHILS % 1.1 % (0.0-5.0); HEMOGLOBIN. 11.4 g/dL (14.0-18.0); LYMPHOCYTES % 25.1 % (20.0-50.0); MEAN CORPUSCULAR HEMOGLOBIN 33.3 pg (28.0-32.0); MEAN CORPUSCULAR VOLUME 96.1 fL (80.0-94.0); MEAN PLATELET VOLUME 7.4 fl (7.4-10.4); MONOCYTES % 8.7 % (2.0-8.0); NEUTROPHILS % 64.7 % (40.0-76.0); PLATELET 436 x1000/uL (130-400); RED BLOOD CELL COUNT 3.43 mill/uL (4.7-6.1); RED CELL DISTRIBUTION WIDTH 13.3 % (11.6-14.6)
[2019-01-11] MEDS: INSULIN LISPRO 100 UNITS/ML SUBCUT SCH ×4 (08:10→21:00)
[2019-01-11 08:15] LABS: CHLORIDE 103 mEq/L (98-107)
[2019-01-11] MEDS: CITRIC ACID/SODIUM CITRATE SOLN 15ML UDC PO SCH ×3 (09:00→17:00)
[2019-01-11] MEDS: AMLODIPINE 10MG TABLET PO SCH (09:13)
[2019-01-11] MEDS: ENOXAPARIN 30MG/0.3ML SYR SUBCUT SCH (09:35)
[2019-01-11] MEDS: INSULIN GLARGINE UD 100 UNITS/ML SYR SUBCUT SCH ×2 (10:00→22:00)
[2019-01-11] MEDS: MORPHINE SULFATE 2 MG/ML CPJ (NOT FOR IM USE) IV PRN (11:06)
[2019-01-11] MEDS: MAGNESIUM/ALUMINUM HYDROXIDE/SIMETHICONE 30ML UDC PO PRN (11:52)
[2019-01-11 12:00] VITALS: BP 149/73
[2019-01-11 16:00] VITALS: BP 172/91
[2019-01-11] MEDS: CEFAZOLIN 1000MG PREMIX 50 ML IV SCH (18:11)
[2019-01-11 20:00] VITALS: BP 146/79
[2019-01-11] MEDS: FAMOTIDINE 20MG TABLET PO SCH (21:23)
[2019-01-11] MEDS: ZOLPIDEM TARTRATE 5MG TABLET PO PRN (21:24)
[2019-01-12] VITALS: BP 139/71
[2019-01-12 04:00] VITALS: BP 154/80
[2019-01-12] MEDS: CLONIDINE 0.1MG TABLET PO SCH ×3 (06:00→22:00)
[2019-01-12] MEDS: BLOOD SUGAR DIAGNOSTIC STRIP TEST SCH ×4 (06:00→21:00)
[2019-01-12 07:03] LABS: BASOPHILS % 0.6 % (0.0-2.0); EOSINOPHILS % 1.9 % (0.0-5.0); HEMATOCRIT. 29.6 % (42.0-52.0); HEMOGLOBIN. 10.4 g/dL (14.0-18.0); MEAN CORPUSCULAR HEMOGLOBIN 33.3 pg (28.0-32.0); MEAN PLATELET VOLUME 7.3 fl (7.4-10.4); MONOCYTES % 10.2 % (2.0-8.0); NEUTROPHILS % 69.3 % (40.0-76.0); PLATELET 362 x1000/uL (130-400); RED BLOOD CELL COUNT 3.12 mill/uL (4.7-6.1); RED CELL DISTRIBUTION WIDTH 13.1 % (11.6-14.6)
[2019-01-12 07:05] LABS: CHLORIDE 104 mEq/L (98-107)
[2019-01-12 07:12] LABS: PHOSPHORUS 4.9 mg/dL (2.5-4.9)
[2019-01-12] MEDS: INSULIN LISPRO 100 UNITS/ML SUBCUT SCH ×4 (07:46→23:12)
[2019-01-12 08:00] VITALS: BP 147/77
[2019-01-12] MEDS: CITRIC ACID/SODIUM CITRATE SOLN 15ML UDC PO SCH ×3 (08:25→16:32)
[2019-01-12] MEDS: AMLODIPINE 10MG TABLET PO SCH (08:26)
[2019-01-12] MEDS: ENOXAPARIN 30MG/0.3ML SYR SUBCUT SCH (08:26)
[2019-01-12] MEDS: INSULIN GLARGINE UD 100 UNITS/ML SYR SUBCUT SCH ×2 (10:00→22:00)
[2019-01-12 10:56] LABS: HEMATOCRIT 34.3 % (42.0-52.0); HEMOGLOBIN 11.7 g/dL (14.0-18.0); MEAN CORPUSCULAR HEMOGLOBIN 32.8 pg (28.0-32.0); MEAN CORPUSCULAR VOLUME 96.6 fL (80.0-94.0); PLATELET 397 x1000/uL (130-400); RED BLOOD CELL COUNT 3.55 mill/uL (4.7-6.1); RED CELL DISTRIBUTION WIDTH 13.4 % (11.6-14.6)
[2019-01-12] MEDS: HYDRALAZINE HCL 25MG TABLET PO SCH ×2 (10:56→23:10)
[2019-01-12] MEDS: MORPHINE SULFATE 2 MG/ML CPJ (NOT FOR IM USE) IV PRN ×2 (10:57→23:09)
[2019-01-12 11:06] LABS: CHLORIDE 102 mEq/L (98-107)
[2019-01-12 16:04] VITALS: BP 131/63
[2019-01-12] MEDS: CEFAZOLIN 1000MG PREMIX 50 ML IV SCH (18:26)
[2019-01-12 20:00] VITALS: BP 150/81
[2019-01-12] MEDS: FAMOTIDINE 20MG TABLET PO SCH (23:10)
[2019-01-13] VITALS: BP 144/73
[2019-01-13 04:00] VITALS: BP 145/79
[2019-01-13] MEDS: CLONIDINE 0.1MG TABLET PO SCH ×3 (05:21→21:40)
[2019-01-13] MEDS: INSULIN LISPRO 100 UNITS/ML SUBCUT SCH ×4 (06:41→21:42)
[2019-01-13] MEDS: BLOOD SUGAR DIAGNOSTIC STRIP TEST SCH ×4 (06:41→21:45)
[2019-01-13 08:00] VITALS: BP 152/72
[2019-01-13] MEDS: CITRIC ACID/SODIUM CITRATE SOLN 15ML UDC PO SCH ×3 (11:55→17:00)
[2019-01-13] MEDS: AMLODIPINE 10MG TABLET PO SCH (11:55)
[2019-01-13] MEDS: HYDRALAZINE HCL 50MG TABLET PO SCH ×2 (11:56→21:40)
[2019-01-13] MEDS: ENOXAPARIN 30MG/0.3ML SYR SUBCUT SCH (11:56)
[2019-01-13 12:00] VITALS: BP 147/78
[2019-01-13] MEDS: INSULIN GLARGINE UD 100 UNITS/ML SYR SUBCUT SCH ×2 (12:00→22:00)
[2019-01-13] MEDS: MORPHINE SULFATE 2 MG/ML CPJ (NOT FOR IM USE) IV PRN (15:56)
[2019-01-13 16:00] VITALS: BP 138/77
[2019-01-13] MEDS ORDERED: ZOLPIDEM TARTRATE 5MG TABLET PO PRN (16:15)
[2019-01-13] MEDS ORDERED: CEFTRIAXONE 1,000 MG in DEXTROSE 5% WATER 50 ML IV SCH (18:00)
[2019-01-13] MEDS ORDERED: CEFAZOLIN 1,000 MG in DEXTROSE 5% WATER 50 ML IV SCH (18:00)
[2019-01-13 20:00] VITALS: BP 146/74
[2019-01-13] MEDS: FAMOTIDINE 20MG TABLET PO SCH (21:40)
[2019-01-14] VITALS: BP 136/69
[2019-01-14 04:00] VITALS: BP 126/59
[2019-01-14] MEDS: CLONIDINE 0.1MG TABLET PO SCH ×2 (06:42→13:13)
[2019-01-14 07:20] LABS: CHLORIDE 102 mEq/L (98-107)
[2019-01-14 07:27] LABS: BASOPHILS % 0.7 % (0.0-2.0); EOSINOPHILS % 1.5 % (0.0-5.0); HEMATOCRIT. 28.6 % (42.0-52.0); HEMOGLOBIN. 9.9 g/dL (14.0-18.0); LYMPHOCYTES % 17.8 % (20.0-50.0); MEAN CORPUSCULAR HEMOGLOBIN 32.8 pg (28.0-32.0); MEAN CORPUSCULAR VOLUME 95.1 fL (80.0-94.0); MEAN PLATELET VOLUME 7.5 fl (7.4-10.4); MONOCYTES % 9.9 % (2.0-8.0); NEUTROPHILS % 70.1 % (40.0-76.0); PHOSPHORUS 5.8 mg/dL (2.5-4.9); PLATELET 388 x1000/uL (130-400); RED BLOOD CELL COUNT 3.01 mill/uL (4.7-6.1); RED CELL DISTRIBUTION WIDTH 13.3 % (11.6-14.6)
[2019-01-14 08:00] VITALS: BP 144/71
[2019-01-14] MEDS: BLOOD SUGAR DIAGNOSTIC STRIP TEST SCH ×2 (08:02→12:54)
[2019-01-14] MEDS: INSULIN LISPRO 100 UNITS/ML SUBCUT SCH ×2 (08:02→12:57)
[2019-01-14] MEDS: CITRIC ACID/SODIUM CITRATE SOLN 15ML UDC PO SCH ×3 (09:00→12:58)
[2019-01-14] MEDS: HYDRALAZINE HCL 50MG TABLET PO SCH (09:18)
[2019-01-14] MEDS: ENOXAPARIN 30MG/0.3ML SYR SUBCUT SCH (09:18)
[2019-01-14] MEDS: AMLODIPINE 10MG TABLET PO SCH (09:19)
[2019-01-14] MEDS: ACETAMINOPHEN 325MG TABLET PO PRN (09:29)
[2019-01-14] MEDS: INSULIN GLARGINE UD 100 UNITS/ML SYR SUBCUT SCH (09:32)
[2019-01-14 12:00] VITALS: BP 152/67
[2019-01-14 14:23] VITALS: BP 152/67
[2019-01-14] MEDS ORDERED: CEFAZOLIN 1000MG PREMIX 50 ML IV SCH (15:30)
[2019-01-14] MEDS ORDERED: CEFAZOLIN 1,000 MG in DEXTROSE 5% WATER 50 ML IV SCH (18:00)
== END 2019-01-14 17:00 | DRG 710 ==
LOC: ER 11:29 → 7WST 11:57 → EDBEDREQTM 17:27 → EDBEDREQ 17:27 → ENRESERV 20:16
PROVIDERS: ADMIT Internal Medicine; ATTEND Internal Medicine
PROC: 0J9R0ZZ Drainage of Left Foot Subcutaneous Tissue and Fascia, Open Approach (ICD-10-PCS; principal; 2019-01-05)
PROC: 02HV33Z Insertion of Infusion Device into Superior Vena Cava, Percutaneous Approach (ICD-10-PCS; 2019-01-05)
PROC: B5181ZA Fluoroscopy of Superior Vena Cava using Low Osmolar Contrast, Guidance (ICD-10-PCS; 2019-01-05)
PROC: B548ZZA Ultrasonography of Superior Vena Cava, Guidance (ICD-10-PCS; 2019-01-05)
PROC: 0S9N0ZZ Drainage of Left Metatarsal-Phalangeal Joint, Open Approach (ICD-10-PCS; 2019-01-05)
DX: A41.9 Sepsis, unspecified organism (principal); N17.0 Acute kidney failure with tubular necrosis; E87.2 Acidosis; E44.0 Moderate protein-calorie malnutrition; E11.40 Type 2 diabetes mellitus with diabetic neuropathy, unspecified; E87.1 Hypo-osmolality and hyponatremia; L03.116 Cellulitis of left lower limb; E11.621 Type 2 diabetes mellitus with foot ulcer; D64.9 Anemia, unspecified; E11.65 Type 2 diabetes mellitus with hyperglycemia; E87.8 Other disorders of electrolyte and fluid balance, not elsewhere classified; F10.20 Alcohol dependence, uncomplicated; I10 Essential (primary) hypertension; K21.9 Gastro-esophageal reflux disease without esophagitis; E87.6 Hypokalemia; M86.9 Osteomyelitis, unspecified; L97.529 Non-pressure chronic ulcer of other part of left foot with unspecified severity; R65.20 Severe sepsis without septic shock; E11.69 Type 2 diabetes mellitus with other specified complication; E78.00 Pure hypercholesterolemia, unspecified; Z79.4 Long term (current) use of insulin; Z82.49 Family history of ischemic heart disease and other diseases of the circulatory system; Z83.3 Family history of diabetes mellitus; L02.612 Cutaneous abscess of left foot; M85.80 Other specified disorders of bone density and structure, unspecified site; Z71.41 Alcohol abuse counseling and surveillance of alcoholic; E11.51 Type 2 diabetes mellitus with diabetic peripheral angiopathy without gangrene; R74.0 Nonspecific elevation of levels of transaminase and lactic acid dehydrogenase [LDH]; Z68.27 Body mass index [BMI] 27.0-27.9, adult; Z79.84 Long term (current) use of oral hypoglycemic drugs
CPT/HCPCS: 36415; 36573; 36600; 71045; 73630; 73721; 76770; 76937; 80048; 80061; 80202; 81003; 82375; 82550; 82805; 82962; 83036; 83605; 83735; 84100; 84134; 84145; 84484; 85027; 87015; 87045; 87070; 87075; 87077; 87427; 87449; 93005; 96365; 97022; 97116; 97162; 99291; A6261; C1725; J0690; J0696; J1100; J1650; J1815; J2270; J2543; J3370; J3475; J3480; J3490; J7030; J7040; J7060; A4315